=== PATIENT | female | born 1980 | race Caucasian/White ===

== ENCOUNTER 2017-02-17 12:42 | Observation (INO) | payer MEDICAID, OTHER ==
--- NOTE | 2017-02-17 14:08 | EDPHY ---
H & P Stated Complaint: rlq abd pain since thurs/n/v/ fever - Personal History LMP (Females 10-55): Over 28 Days Ago Current Tetanus/Diphtheria Vaccine: Yes - Medical/Surgical History Hx Asthma: No Hx Chronic Respiratory Disease: No Hx Diabetes: No Hx Cardiac Disease: No Hx Renal Disease: No Hx Cirrhosis: No Hx Alcoholism: No Hx HIV/AIDS: No Hx Splenectomy or Spleen Trauma: No Other PMH: anxiety - Social History Smoking Status: Former smoker Time Seen by Provider: 02/17/17 14:00 HPI/ROS: CHIEF COMPLAINT: Right lower quadrant abdominal pain HISTORY OF PRESENT ILLNESS: 36-year-old female complaining of right lower quadrant pain for the past 2 days with antecedent 2 days of nausea vomiting. Last oral intake was last night. No fever or chills. No urinary abnormality. No back or flank pain. No vaginal bleeding. Due to start her menstrual period. No primary care provider REVIEW OF SYSTEMS: A ten point review of systems was performed and is negative with the exception of the items mentioned in the HPI PAST MEDICAL & SURGICAL HISTORY: History of acne. No history of abdominal surgeries. SOCIAL HISTORY: Nonsmoker PHYSICAL EXAM (Prior to examination, patient consented to physical exam, hands were washed and my usual and customary physical exam procedures followed) 1) GENERAL: Well-developed, well-nourished, alert and oriented. Appears to be in no acute distress. Answering questions appropriately. Smiling. Shakes my hand. 2) HEAD: Normocephalic, atraumatic 3) HEENT: Pupils equal, round, reactive to light bilaterally. Sclera anicteric. 4) NECK: Full range of motion, no meningeal signs. 5) LUNGS: Clear auscultation bilaterally, no wheezes, no rhonchi, no retractions. 6) HEART: Regular rate and rhythm, no murmur, no heave, no gallop. 7) ABDOMEN: tender to palpation McBurney's point. No generalizedperitoneal sign 8) MUSCULOSKELETAL: Moving all extremities, no focal areas of tenderness, no obvious trauma. No peripheral edema or discoloration. 9) BACK: No CVA tenderness,. 10) SKIN: No rash, no petechiae. DIFFERENTIAL DIAGNOSIS: My differential diagnosis includes, but is not limited to, acute appendicitis, acute cholecystitis, bowel obstruction, acute pancreatitis, ovarian torsion, ectopic , gastritis and urinary tract infection. (Mirella Lamar) Constitutional: Initial Vital Signs Temperature (C) 37.2 C 02/17/17 13:07 Heart Rate 107 H 02/17/17 13:07 Respiratory Rate 22 H 02/17/17 13:07 Blood Pressure 112/72 02/17/17 13:07 O2 Sat (%) 98 02/17/17 13:07 O2 Delivery Mode Room Air Allergies/Adverse Reactions: Tetracyclines Allergy (Verified 02/17/17 13:06) Home Medications: Medication Instructions Recorded traZODone [traZODONE 50MG (*)] 25 mg PO HS PRN 07/29/14 Cholecalciferol Vit D3 [Vitamin D3 1,000 units PO DAILY 02/17/17 (*)] Clindamycin Phosphate [Clindamycin 1 zeke TP DAILY 02/17/17 Top Solution] Ibuprofen [Motrin (*)] 400 - 600 mg PO DAILY PRN 02/17/17 Spironolactone [Aldactone 25 MG 25 mg PO BID@07,16 02/17/17 (*)] Tretinoin [Retin-A] 1 zeke TP HS 02/17/17 clonazePAM [Klonopin (*)] 0.25 mg PO DAILY PRN 02/17/17 Amoxicillin/Clavulanate Pot 875 mg PO BID #20 tab 02/18/17 [Augmentin 875 MG TAB (*)] Hydrocodone/APAP 5/325 [[place] 1 - 2 tab PO Q4HRS PRN #30 tab 02/18/17 5/325 (*)] Medical Decision Making - Diagnostics Imagin:40 p.m.: Ultrasound of abdomen positive for appendicitis interpreted by radiologist. Images reviewed by myself (Mirella Lamar) ED Course/Re-evaluation: 4:50 p.m.: Re-evaluation. She is mentating clearly, appears comfortable, remains tender McBurney's point. Discussed her ultrasound results positive for appendicitis. Last oral intake was last evening. 4:55 pm: Phone consultation with Dr Amezquita who will admit patient for acute appendicitis. This patient meets SIRS criteria, has a normal lactate. discussed case Dr. Dalila Brewer in the ER. Plan will be admission, Invanz, operating room. (Mirella Lamar) Other Provider: The patient was evaluated and managed by the Physician Maintenance Planning Clerk. I discussed the patient's presentation and course with the physician resident programs assistant and agree with the evaluation. My co-signature indicates that I have reviewed this chart and I agree with the findings and plan of care as documented. I am the secondary supervising physician. (Dalila Brewer) - Data Points Laboratory Results: Laboratory Results 02/17/17 14:10 02/17/17 14:10 Medications Given: Discontinued Medications Hydrocodone Bitart/Acetaminophen ([place] 5/325) 1 - 2 tab PO Q4HRS PRN PRN Reason: Pain, Moderate Able to Take PO Stop: 02/27/17 20:48 Last Admin: 02/18/17 12:57 Dose: 1 tab Ertapenem 1 gm/ Sodium (Chloride) 100 mls @ 200 mls/hr IV EDNOW ONE PRN Reason: Protocol Stop: 02/17/17 17:18 Last Admin: 02/17/17 17:28 Dose: 100 mls Ertapenem 1 gm/ Sodium (Chloride) 100 mls @ 200 mls/hr IV DAILY GROVER PRN Reason: Protocol Stop: 03/20/17 08:59 Last Admin: 02/18/17 09:54 Dose: 100 mls Ketorolac Tromethamine (Toradol) 30 mg IVP EDNOW ONE Stop: 02/17/17 15:53 Last Admin: 02/17/17 15:56 Dose: 30 mg Ketorolac Tromethamine (Toradol) 15 mg IVP Q6HRS GROVER Stop: 02/23/17 00:00 Last Admin: 02/18/17 10:46 Dose: 15 mg Morphine Sulfate (Morphine) 2 mg IVP Q1HR PRN PRN Reason: Pain, Severe Unable to Take PO Stop: 02/27/17 16:55 Last Admin: 02/17/17 23:33 Dose: 2 mg Departure - Departure Disposition: Home, Routine, Self-Care Clinical Impression: Acute appendicitis Qualifiers: Acute appendicitis type: with localized peritonitis Qualified Code(s): K35.3 - Acute appendicitis with localized peritonitis Condition: Good
[2017-02-17 14:14] LABS: % IMMATURE GRANULYOCYTES 0.6 % (0.0-1.1); ABSOLUTE IMMATURE GRANULOCYTES 0.08 10^3/uL (0.00-0.10); ADD DIFF? NO; ADD MORPH? NO; ADD SCAN? NO; ATYPICAL LYMPHOCYTE FLAG 0 (0-99); FRAGMENT RBC FLAG 0 (0-99); HEMATOCRIT 39.9 % (38.0-47.0); HEMOGLOBIN 13.5 g/dL (12.6-16.3); LEFT SHIFT FLG 0 (0-99); LIPEMIA HEMOLYSIS FLAG 90 (0-99); MEAN CELL HEMOGLOBIN 31.7 pg (27.9-34.1); MEAN CELL HEMOGLOBIN CONCENTR. 33.8 g/dL (32.4-36.7); MEAN CELL VOLUME 93.7 fL (81.5-99.8); MEAN PLATELET VOLUME 10.5 fL (8.7-11.7); PLATELET CLUMPS FLAG 10 (0-99); PLATELET COUNT 183 10^3/uL (150-400); RED BLOOD CELL COUNT 4.26 10^6/uL (4.18-5.33); RED CELL DISTRIBUTION WIDTH 12.4 % (11.5-15.2)
[2017-02-17 14:20] LABS: COLOR YELLOW; LEUKOCYTE ESTERASE,URINE NEGATIVE (NEGATIVE); NITRITE,URINE NEGATIVE (NEGATIVE)
[2017-02-17 14:22] LABS: BACTERIA 1+ /hpf (NONE SEEN)
[2017-02-17 14:31] LABS: ALANINE AMINOTRANSFERASE 30 IU/L (9-52); ALBUMIN 3.7 g/dL (3.5-5.0); ALKALINE PHOSPHATASE 54 IU/L (38-126); ANION GAP 10 mEq/L (8-16); ASPARTATE AMINOTRANSFERASE 21 IU/L (14-46); BILIRUBIN,TOTAL 1.1 mg/dL (0.1-1.4); BILIRUBIN-CONJUGATED 0.4 mg/dL (0.0-0.5); BILIRUBIN-UNCONJUGATED 0.7 mg/dL (0.0-1.1); CALCIUM 9.1 mg/dL (8.5-10.4); CARBON DIOXIDE 27 mEq/l (22-31); CHLORIDE 101 mEq/L (97-110); CREATININE 0.7 mg/dL (0.6-1.0); GLOMERULAR FILTRATION RATE > 60; GLUCOSE 88 mg/dL (70-100); POTASSIUM 4.1 mEq/L (3.5-5.2); SODIUM 138 mEq/L (134-144); TOTAL PROTEIN 6.4 g/dL (6.3-8.2)
[2017-02-17] MEDS ORDERED: KETOROLAC 30 MG/1 ML SDV IVP ONE (15:52)
[2017-02-17] MEDS ORDERED: KETOROLAC 30 MG/1 ML SDV ONE ×3 (15:53→21:21)
[2017-02-17] MEDS ORDERED: ERTAPENEM 1 GM in NS 100 ML IV ONE (16:49)
[2017-02-17] MEDS ORDERED: ONDANSETRON 4 MG/2 ML VIAL IVP PRN (16:56)
[2017-02-17] MEDS ORDERED: D5W 1/2 NS W/ 20 KCl/L 1,000 ML IV SCH (17:00)
--- NOTE | 2017-02-17 19:29 | GHP ---
[f rep st] HISTORY AND PHYSICAL DATE OF ADMISSION: 02/17/2017 REQUESTING PRACTITIONER: Macario Lamar PA-C. CHIEF COMPLAINT: Acute appendicitis. HISTORY OF PRESENT ILLNESS: The patient is a 36-year-old woman who reports nausea and vomiting on . Her generalized abdominal pain improved over the weekend, but today she was left with resi dual abdominal pain in the right lower quadrant. She ultimately presented to the emergency room. H er white count was 14,000. She had an ultrasound performed which showed an appendix measuring 1.1 c m and she also had a complex cyst in her right ovary measuring 2.8 cm. PAST MEDICAL HISTORY: Anxiety. PAST SURGICAL HISTORY: None. SOCIAL HISTORY: She is unemployed. She drinks alcohol and smokes on occasion. She does not use ma rijuana. FAMILY HISTORY: Noncontributory to appendicitis. REVIEW OF SYSTEMS: A 10-point review of systems was negative, except per HPI. PHYSICAL EXAMINATION: VITAL SIGNS: 37.2, 107, 112/72, 22, 98% room air. GENERAL: A pleasant ,wel l-nourished woman sitting up on gurney. Friend at bedside. HEENT: Normocephalic. No gross hearin g deficits. Mucous membranes moist. Pupils equal and round. LUNGS: Clear to auscultation bilater ally. No increased work of breathing. CARDIAC: Tachycardic. No peripheral edema. ABDOMEN: Isaías l sounds present. She is tender in the right lower quadrant lateral to the umbilicus. SKIN: Tatto o below navel. MUSCULOSKELETAL: Normal nails. IMPRESSION AND PLAN: The patient is a 36-year-old with acute appendicitis. I will take her to the operating room for a laparoscopic appendectomy. The risks and benefits, including, but not limited to, stroke, heart attack, , blood clots, infection, bleeding, damage to surrounding structures such as the bowel and bladder, were discussed. She had her questions answered to her satisfaction a nd signed the informed consent. /[id number]/MODL
[2017-02-17] MEDS ORDERED: BUPIVACAINE 0.5% 30 ML SDV ONE (20:27)
[2017-02-17] MEDS ORDERED: SKIN ADHESIVE (DERMABOND) 1 EACH TP ONE (20:27)
[2017-02-17] MEDS ORDERED: REMIFENTANIL HCL 1 MG VIAL ONE (20:28)
[2017-02-17] MEDS ORDERED: PROPOFOL/EMULSION 500 MG/50 ML BOTTLE IV ONE (20:28)
[2017-02-17] MEDS ORDERED: fentaNYL 100 MCG/2 ML INJ ONE ×2 (20:28→21:55)
[2017-02-17] MEDS ORDERED: LIDOCAINE 2% 5 ML SDV ONE (20:29)
[2017-02-17] MEDS ORDERED: DEXAMETHASONE 4 MG/ML VIAL ONE (20:29)
[2017-02-17] MEDS ORDERED: ONDANSETRON 4 MG/2 ML VIAL ONE (20:29)
[2017-02-17] MEDS ORDERED: ROCURONIUM 50 MG/5 ML VIAL ONE (20:30)
[2017-02-17] MEDS ORDERED: MIDAZOLAM 2 MG/2 ML VIAL ONE (20:38)
--- NOTE | 2017-02-17 20:50 | POSTOPPROG ---
Post Op Note Date of Operation: 02/17/17 Surgeon: Juana Amezquita Anesthesiologist: roula Anesthesia: GET(General Endotracheal) Pre-op Diagnosis: acute appendicitis Post-op Diagnosis: perforated appendicitis Indication: 36 yo with abdominal pain Procedure: lap appy Findings: inflamed appendix Inf/Abcess present in the surg proc area at time of surgery?: No EBL: Minimal Specimen(s): appendix
[2017-02-17] MEDS ORDERED: SUGAMMADEX SODIUM 200 MG/2 ML VIAL IVP ONE (21:22)
--- NOTE | 2017-02-17 21:59 | GOP ---
[f rep st] OPERATIVE REPORT DATE OF OPERATION: 02/17/2017 SURGEON: Juana Amezquita MD ANESTHESIA: General. ANESTHESIOLOGIST: Rosmery Villarreal DO PREOPERATIVE DIAGNOSIS: Acute appendicitis. POSTOPERATIVE DIAGNOSIS: Acute perforated appendicitis. PROCEDURE PERFORMED: Laparoscopic appendectomy with washout. FINDINGS: Necrotic tip of the appendix with localized purulence. SPECIMENS: Appendix. ESTIMATED BLOOD LOSS: 5 mL. INDICATIONS: The patient is a 36-year-old woman who has had abdominal pain since . The pain persisted and localized in her right lower quadrant, so she presented to the emergency room. DESCRIPTION OF PROCEDURE: The patient was brought into the operating room, placed supine on the table, and general anesthesia was administered. Her abdomen was prepped and draped in the usual sterile fashion. I infiltrated all sites with 0.5% Marcaine prior to making incisions. I made an incision at her umbilicus. I elevated it and I inserted the Veress needle. It passed the hanging drop test. Her abdomen insufflated easily to a pressure of 15 mmHg. With the camera in the trocar, I placed a 5 mm trocar at the umbilicus. There were no injuries from Veress needle placement. Under direct vision, I placed a 5 mm suprapubic trocar and a 10 mm trocar in the lower left quadrant. Her appendix was retrocecal and adhered to the abdominal wall. The tip was necrotic and there was a contained perforation with purulence at that site. I came around the base of the appendix with a [place]. I divided it with an Endo -OLIVERIO 45 white load. I then transected the base of the mesoappendix with the Harmonic Scalpel. I placed the friable appendix in an EndoCatch bag and retrieved it via the 10 mm trocar. The area was washed out. The staple line was intact. No injuries were noted. The ports were removed under direct vision and the abdomen allowed to desufflate. The fascia at the 10 mm trocar site was closed with 0 Vicryl. Skin closed with 4-0 Monocryl. Dermabond applied. She was awakened in the operating room, extubated, and transferred to PACU in stable condition. /[id number]/MODL MTDD
[2017-02-17 22:31] VITALS: RESP 16
[2017-02-18] MEDS: HYDROCODONE/APAP 5/325 TAB PO PRN ×3 (01:24→12:57)
[2017-02-18] MEDS: KETOROLAC 15 MG/1 ML SDV IVP SCH ×3 (03:44→10:46)
[2017-02-18] MEDS ORDERED: ERTAPENEM 1 GM in NS 100 ML IV SCH (09:00)
[2017-02-18] MEDS ORDERED: MAGNESIUM HYDROXIDE 30 ML UDCUP PO PRN (09:53)
[2017-02-18] MEDS ORDERED: BISACODYL 10 MG SUPP PR PRN (09:53)
[2017-02-18] MEDS ORDERED: LACTULOSE 20 GM/30 ML UDCUP PO PRN (09:53)
[2017-02-18] MEDS ORDERED: POLYETHYLENE GLYCOL 3350 17 GM PKT PO PRN (09:53)
--- NOTE | 2017-02-18 10:51 | SOAPPROG ---
SOAP Progress Note Assessment/Plan: Assessment: POD#1 s/p lap appy for perforated appendix Pain controlled with [place] IV Invanz while inpatient, will d/c with Augmentin x 1 week Passing flatus, no BM since last saturday Start bowel protocol Regular diet Dispo: likely d/c home later this afternoon if pain controlled and continues to pass flatus. May shower this afternoon. Avoid heavy lifting, pushing or pulling x2 weeks. Will follow up with Dr. Amezquita or Naomi Conde PA-C in 2 weeks. S: Sore with movement. Passing gas. Pain controlled with [place]. No nausea vomiting O: lying in bed, comfortable, no acute distress No increased work of breathing Normoactive bowel sounds throughout, soft, slightly distended, tender to deep palpation. Incisions clean, dry and intact without evidence of infection Objective: Vital Signs Temp Pulse Resp BP Pulse Ox 36.0 C 67 16 88/58 L 97 02/18/17 08:00 02/18/17 08:00 02/18/17 08:00 02/18/17 08:00 02/18/17 08:00 02/17/17 02/18/17 02/19/17 05:59 05:59 05:59 Intake Total 2250 Output Total 307 Balance 1943 ICD10 Worksheet Patient Problems: Problems Problem Status Onset Acute appendicitis Acute
[2017-02-18 12:19] VITALS: BP 111/68; PULSE 60; TEMP 97.5; O2SAT 98
[2017-02-18] MEDS ORDERED: SENNOSIDES/DOCUSATE SODIUM TAB PO SCH (21:00)
== END 2017-02-18 13:13 | disposition home or self-care (01) ==
LOC: INTOOBSV 16:54 → FOB 18:48
PROVIDERS: ADMIT Surgery; ATTEND Surgery
PROC: 0DTJ4ZZ Resection of Appendix, Percutaneous Endoscopic Approach (ICD-10-PCS; principal; 2017-02-17 20:46)
DX: K35.3 Acute appendicitis with localized peritonitis (principal); N83.202 Unspecified ovarian cyst, left side
CPT/HCPCS: 44970; 76705; 76856; G0378; 96374; J1100; J1335; J1885; J2250; J2405; J2704; J3010

== ENCOUNTER 2017-03-25 13:55 | Emergency (ER) | payer MEDICAID ==
[2017-03-25] MEDS ORDERED: NS 1,000 ML IV ONE (14:56)
--- NOTE | 2017-03-25 15:02 | EDPHY ---
H & P Stated Complaint: Cramping,loose stools x 2 wks;appy 02/18/17 HPI/ROS: CHIEF COMPLAINT: Cramping, loose stools HISTORY OF PRESENT ILLNESS: patient complains of 2-3 weeks of mild abdominal cramping with some intermittent loose stools. This was gradual onset. Constant duration. [id number] symptoms. No actual abdominal pain. No fever chills. No bloody stools or emesis. she had appendectomy on February, which is documented as uncomplicated. She was discharged home with amoxicillin. Her postoperative Care was described as routine an uncomplicated. She was doing well until the above complaints started. She is concerned, but also feels that is related to her anxiety. She wants to make sure that she does not C difficile infection. She feels that the anxiety is heavily tied do this. She has never been diagnosed with any other intra- abdominal abnormalities. She contacted surgeon's office and they recommended that she see a GI physician. The GI physician has informed that she needs a referral from her primary care physician as she has Medicaid she has no other associated complaints or modifying PREVIOUS ABDOMINAL SURGERIES/DIAGNOSES: appendectomy February 17, 2017 REVIEW OF SYSTEMS: Ten systems reviewed and are negative unless otherwise noted in the HPI EXAMINATION: General Appearance: Alert, no distress Head: normocephalic, atraumatic Eyes: Pupils equal and round, no conjunctival pallor or injection ENT, Mouth: Mucous membranes moist Neck: Normal inspection, supple, non-tender Respiratory: Lungs are clear to auscultation. No wheezing, rhonchi or crackles. Cardiovascular: Regular rate and rhythm . No murmur. Pulses Intact distally. Gastrointestinal: Abdomen is soft and nontender. laparoscopic incisions are well healed. They are clean, dry and intact. No tympany. No rigidity. No distention. Bowel sounds are symmetric in all quadrants. No rebound. No guarding no point tenderness. Non-acute abdomen. Neurological: A&O, nonfocal, normal gait Skin: Warm and dry, no rash Extremities: Nontender, no pedal edema Psychiatric: Mood and affect normal DIFFERENTIAL DIAGNOSES: Including but not limited to irritable bowel syndrome, inflammatory bowel, diarrhea, infectious diarrhea, viral illness, dehydration, electrolyte disturbance MDM: 3:00 p.m. loose stools and abdominal cramping. This has been present for over 2 weeks. No pain at this time. No bloody stools. Abdominal exam is benign. Her history and examination does not suggest that she has an undiagnosed irritable bowel syndrome. I have ordered laboratory studies and stool study doc 4:05 p.m. laboratory studies reveal very mild leukocytosis. Electrolytes are within normal limits. Abdominal exam remains benign. 5:05 p.m. GI pathogen panel does reveal a positive C difficile toxin. I have re- evaluated the patient. Her abdomen remains benign. We will treat her for the positive C difficile toxin. This will be with p.o. Flagyl. I will provide Diflucan as she does get yeast infections. She has strict return to emergency department precautions for fever, chills, abdominal pain at rest, bloody stools or high-output diarrhea. She is comfortable with this plan and discharged home in stable condition. ED Precautions: Worsening pain. Fever. Bloody stools. Bloody emesis. Constipation or diarrhea. SUPERVISION: Patient was evaluated in conjunction with the supervising physician. Please see their note for details. Source: Patient, Family, Old records Exam Limitations: No limitations - Personal History LMP (Females 10-55): 22-28 Days Ago Current Tetanus Diphtheria and Acellular Pertussis (TDAP): Yes - Medical/Surgical History Hx Asthma: No Hx Chronic Respiratory Disease: No Hx Diabetes: No Hx Cardiac Disease: No Hx Renal Disease: No Hx Cirrhosis: No Hx Alcoholism: No Hx HIV/AIDS: No Hx Splenectomy or Spleen Trauma: No Other PMH: anxiety. appy - Social History Smoking Status: Current some day smoker Constitutional: Initial Vital Signs Temperature (C) 97.7 F 03/25/17 13:57 Heart Rate 104 H 03/25/17 13:57 Respiratory Rate 20 03/25/17 13:57 Blood Pressure 124/89 H 03/25/17 13:57 O2 Sat (%) 98 03/25/17 13:57 O2 Delivery Mode Room Air Allergies/Adverse Reactions: Tetracyclines Allergy (Intermediate, Verified 03/25/17 14:00) Hives Home Medications: Medication Instructions Recorded traZODone [traZODONE 50MG (*)] 25 mg PO HS PRN 07/29/14 Clindamycin Phosphate [Clindamycin 1 zeke TP DAILY 02/17/17 Top Solution] Spironolactone [Aldactone 25 MG 25 mg PO BID@07,16 02/17/17 (*)] Tretinoin [Retin-A] 1 zeke TP HS 02/17/17 clonazePAM [Klonopin (*)] 0.25 mg PO DAILY PRN 02/17/17 Fluconazole 150 mg PO AD #2 tablet 03/25/17 hydrOXYzine HCL [Hydroxyzine HCl] 50 mg PO Q6-8PRN PRN #20 tablet 03/25/17 metroNIDAZOLE [Flagyl 500 mg (*)] 500 mg PO TID #42 tab 03/25/17 Medical Decision Making - Data Points Laboratory Results: Laboratory Results 03/25/17 15:15 03/25/17 15:15 03/25/17 03/25/17 03/25/17 15:15 15:15 15:15 WBC 10.40 10^3/uL H 10^3/uL (3.80-9.50) RBC 4.65 10^6/uL 10^6/uL (4.18-5.33) Hgb 14.3 g/dL g/dL (12.6-16.3) Hct 42.6 % % (38.0-47.0) MCV 91.6 fL fL (81.5-99.8) MCH 30.8 pg pg (27.9-34.1) MCHC 33.6 g/dL g/dL (32.4-36.7) RDW 12.1 % % (11.5-15.2) Plt Count 228 10^3/uL 10^3/uL (150-400) MPV 10.6 fL fL (8.7-11.7) Neut % (Auto) 81.9 % H % (39.3-74.2) Lymph % (Auto) 9.7 % L % (15.0-45.0) [place] % (Auto) 5.9 % % (4.5-13.0) Eos % (Auto) 1.6 % % (0.6-7.6) Baso % (Auto) 0.6 % % (0.3-1.7) Nucleat RBC Rel Count 0.0 % % (0.0-0.2) Absolute Neuts (auto) 8.52 10^3/uL H 10^3/uL (1.70-6.50) Absolute Lymphs (auto) 1.01 10^3/uL 10^3/uL (1.00-3.00) Absolute Monos (auto) 0.61 10^3/uL 10^3/uL (0.30-0.80) Absolute Eos (auto) 0.17 10^3/uL 10^3/uL (0.03-0.40) Absolute Basos (auto) 0.06 10^3/uL 10^3/uL (0.02-0.10) Absolute Nucleated RBC 0.00 10^3/uL 10^3/uL (0-0.01) Immature Gran % 0.3 % % (0.0-1.1) Immature Gran # 0.03 10^3/uL 10^3/uL (0.00-0.10) Sodium 136 mEq/L mEq/L (134-144) Potassium 4.1 mEq/L mEq/L (3.5-5.2) Chloride 105 mEq/L mEq/L (97-110) Carbon Dioxide 22 mEq/l mEq/l (22-31) Anion Gap 9 mEq/L mEq/L (8-16) BUN 9 mg/dL mg/dL (7-23) Creatinine 0.7 mg/dL mg/dL (0.6-1.0) Estimated GFR > 60 Glucose 94 mg/dL mg/dL (70-100) Calcium 9.3 mg/dL mg/dL (8.5-10.4) Lipase 89.0 IU/L IU/L (23-300) Beta HCG, Qual NEGATIVE Microbiology Results: MICROBIOLOGY 03/25/17 14:35 Stool Gastrointestinal Tract Panel (PCR) - Final Clostridium Difficile Detected Medications Given: Discontinued Medications Sodium Chloride (Ns) 1,000 mls @ 0 mls/hr IV ONCE ONE PRN Reason: Wide Open Stop: 03/25/17 14:57 Last Admin: 03/25/17 15:21 Dose: 1,000 mls Departure - Departure Disposition: Home, Routine, Self-Care Clinical Impression: Anxiety, Abdominal cramping, Clostridium difficile infection Diarrhea Qualifiers: Diarrhea type: unspecified type Qualified Code(s): R19.7 - Diarrhea, unspecified Condition: Good Instructions: Irritable Bowel Syndrome (ED), Acute Diarrhea (ED), Anxiety (ED) Additional Instructions: medications as discussed. Follow up with primary care physician to establish and be referred to GI physician. Return to ER as needed as discussed Referrals: NONE *PRIMARY CARE P,. [Primary Care Provider] - As per Instructions [facility],. [Clinic] - As per Instructions Matti Godoy MD [Medical Doctor] - As per Instructions Dayo Garcia MD [Medical Doctor] - As per Instructions Prescriptions: Fluconazole 150 mg PO AD #2 tablet hydrOXYzine HCL [Hydroxyzine HCl] 50 mg PO Q6-8PRN PRN #20 tablet PRN Reason: Itching metroNIDAZOLE [Flagyl 500 mg (*)] 500 mg PO TID #42 tab
[2017-03-25 15:30] LABS: % IMMATURE GRANULYOCYTES 0.3 % (0.0-1.1); ABSOLUTE IMMATURE GRANULOCYTES 0.03 10^3/uL (0.00-0.10); ADD DIFF? NO; ADD MORPH? NO; ADD SCAN? NO; ATYPICAL LYMPHOCYTE FLAG 20 (0-99); FRAGMENT RBC FLAG 0 (0-99); HEMATOCRIT 42.6 % (38.0-47.0); HEMOGLOBIN 14.3 g/dL (12.6-16.3); LEFT SHIFT FLG 10 (0-99); LIPEMIA HEMOLYSIS FLAG 80 (0-99); MEAN CELL HEMOGLOBIN 30.8 pg (27.9-34.1); MEAN CELL HEMOGLOBIN CONCENTR. 33.6 g/dL (32.4-36.7); MEAN CELL VOLUME 91.6 fL (81.5-99.8); MEAN PLATELET VOLUME 10.6 fL (8.7-11.7); PLATELET CLUMPS FLAG 0 (0-99); PLATELET COUNT 228 10^3/uL (150-400); RED BLOOD CELL COUNT 4.65 10^6/uL (4.18-5.33); RED CELL DISTRIBUTION WIDTH 12.1 % (11.5-15.2)
[2017-03-25 16:14] LABS: ANION GAP 9 mEq/L (8-16); CALCIUM 9.3 mg/dL (8.5-10.4); CARBON DIOXIDE 22 mEq/l (22-31); CHLORIDE 105 mEq/L (97-110); CREATININE 0.7 mg/dL (0.6-1.0); GLOMERULAR FILTRATION RATE > 60; GLUCOSE 94 mg/dL (70-100); POTASSIUM 4.1 mEq/L (3.5-5.2); SODIUM 136 mEq/L (134-144)
[2017-03-25 17:46] VITALS: BP 97/91; PULSE 78; RESP 18; TEMP 98.4; O2SAT 95
== END 2017-03-25 17:45 | disposition home or self-care (01) ==
DX: A04.7 Enterocolitis due to Clostridium difficile (principal); F41.9 Anxiety disorder, unspecified; F17.200 Nicotine dependence, unspecified, uncomplicated

== ENCOUNTER → 2018-04-08 | Outpatient (CLI) | payer MEDICAID | LOC: BMCIMAGING 14:23 | PROVIDERS: ATTEND Internal Medicine | DX: J06.9 Acute upper respiratory infection, unspecified (principal); J40 Bronchitis, not specified as acute or chronic ==